=== PATIENT | female | born 1990 | race Caucasian/White ===

== ENCOUNTER 2018-03-31 17:51 | Emergency (ER) | payer OTHER ==
--- NOTE | 2018-03-31 18:11 | CPEKG ---
Heart Rate: 61 RR Interval: 984 P-R Interval: 136 QRSD Interval: 102 QT Interval: 404 QTC Interval: 407 P [place]: 18 QRS [place]: 51 T Wave [place]: 53 EKG Severity - NORMAL ECG - EKG Impression: SINUS RHYTHM Electronically Signed By: Boni Banerjee 02-Apr-2018 07:52:09
[2018-03-31] MEDS ORDERED: NS 1,000 ML IV ONE (18:21)
[2018-03-31] MEDS ORDERED: ONDANSETRON 4 MG/2 ML VIAL IVP ONE (18:21)
--- NOTE | 2018-03-31 18:25 | EDPHY ---
H & P Time Seen by Provider: 03/31/18 17:58 HPI/ROS: CHIEF COMPLAINT: Syncope HISTORY OF PRESENT ILLNESS: 27-year-old transgender male presents to the emergency department by private vehicle after having a syncopal episode. The patient woke up feeling fine this morning around 10 30 felt nauseous and vomited 1 time. Then he was washing dishes around noon today and felt lightheaded and had a syncopal episode. He fell and hit the left anterior aspect of his forehead. He thinks that he had brief loss of consciousness approximately 1 min. He has a mild left frontal headache where he hit. Denies neck or back pain. Denies chest pain or difficulty breathing. He apparently vomited 2 additional times since he hit his head earlier today. He denies abdominal pain. Denies pain in his upper or lower extremities. He has not had problems with syncope in the past. He does have history of seasonal allergies and is not uncommon for him to vomit because of his allergies. REVIEW OF SYSTEMS: Constitutional: No fever, no chills. Eyes: No double or blurry vision. ENT: No sore throat. Respiratory: No cough, no shortness of breath. Cardiac: No chest pain. Gastrointestinal: Vomiting. No abdominal pain or diarrhea. Genitourinary: No dysuria. Musculoskeletal: No neck or back pain. Skin: No rashes. Neurological: headache. Past Medical/Surgical History: Transgender male on testosterone Social History: Single Smoking Status: Current every day smoker Physical Exam: General Appearance: Alert, no distress. Mentating normally and answering questions appropriately. He does have a small hematoma noted to the left anterior frontal forehead. No evidence of depressed skull fracture. Eyes: Pupils equal and round. Extraocular motions are all intact. ENT: Mouth: Mucous membranes moist. No hemotympanum. No dental injury or malocclusion. Respiratory: No wheezing, rhonchi, or rales, lungs are clear to auscultation. Cardiovascular: Regular rate and rhythm. Gastrointestinal: Abdomen is soft and nontender, no masses, no rebound or guarding, bowel sounds normal. Neurological: Alert and oriented x 3, cranial nerves II through XII grossly intact Skin: Warm and dry, no rashes. There are numerous very superficial healing lacerations from self inflicted wounds to bilateral forearms. Musculoskeletal: Nontender to palpate along the cervical, thoracic or lumbar spine. Neck is supple. Extremities: Full range of motion and no peripheral edema. Psychiatric: Patient is oriented X 3, there is no agitation. Constitutional: Initial Vital Signs Temperature (C) 37.5 C 03/31/18 17:54 Heart Rate 70 03/31/18 17:54 Respiratory Rate 16 03/31/18 17:54 Blood Pressure 141/97 H 03/31/18 17:54 O2 Sat (%) 98 03/31/18 17:54 O2 Delivery Mode Room Air Allergies/Adverse Reactions: No Known Allergies Allergy (Unverified 03/31/18 17:52) Home Medications: Medication Instructions Recorded Testosterone Cypionate 03/31/18 Medical Decision Making ED Course/Re-evaluation: 27-year-old transgender male presents to the emergency department with closed head injury and after having a syncopal episode. Laboratory studies were all within normal limits. He received IV normal saline. His EKG was unremarkable. The case was discussed with Dr. Noemi Israel, secondary supervising physician, who did not directly evaluate the patient but agrees with treatment and plan. The patient has a normal neurologic examination. There is a very small hematoma noted to the anterior lateral aspect of the left forehead. He has mild pain with palpation over his forehead a however no other real headache. I discussed the pros and cons of CT imaging of his brain including radiation exposure and the patient agrees with not obtaining CT scan at this time. I did encourage him to return to the emergency department developed worsening headache , vomiting, altered mental status, or any other concerns. Differential Diagnosis: Head injury including but not limited to concussion, skull fracture, intraparenchymal contusion, subarachnoid, subdural and epidural hematoma. Syncope including but not limited to vasovagal syncope, arrhythmia, dehydration , and blood loss. - Data Points Laboratory Results: Laboratory Results 03/31/18 17:50 03/31/18 17:50 Medications Given: Discontinued Medications Sodium Chloride (Ns) 1,000 mls @ 0 mls/hr IV ONCE ONE PRN Reason: Wide Open Stop: 03/31/18 18:22 Last Admin: 03/31/18 18:30 Dose: 1,000 mls Ondansetron HCl (Zofran) 4 mg IVP EDNOW ONE Stop: 03/31/18 18:22 Last Admin: 03/31/18 18:30 Dose: 4 mg Departure - Departure Disposition: Home, Routine, Self-Care Clinical Impression: Syncope Qualifiers: Syncope type: unspecified Qualified Code(s): R55 - Syncope and collapse Head injury Qualifiers: Encounter type: initial encounter Qualified Code(s): S09.90XA - Unspecified injury of head, initial encounter Condition: Good Instructions: Syncope (ED), Concussion (ED), Head Injury (ED) Additional Instructions: Avoid any activity that might put you at risk for another head injury for at least 1 week. Return to the emergency department if you developed worsening headache, vomiting , altered mental status, or if you feel worse in any way. Diet and activity as tolerated. Referrals: Alexandra Lino MD [Medical Doctor] - 1-2 days without fail (Primary care provider transmission line engineer) Stand Alone Forms: Work Excuse
[2018-03-31 18:49] LABS: PLATELET COUNT 171 10^3/uL (150-400)
[2018-03-31 19:42] VITALS: BP 144/91
== END 2018-03-31 20:01 | disposition home or self-care (01) ==
DX: S09.90XA Unspecified injury of head, initial encounter (principal); R55 Syncope and collapse; F17.200 Nicotine dependence, unspecified, uncomplicated; W18.09XA Striking against other object with subsequent fall, initial encounter
CPT/HCPCS: 96374; J2405

== ENCOUNTER 2018-05-01 09:42 | Emergency (ER) | payer OTHER ==
--- NOTE | 2018-05-01 09:52 | EDPHY ---
H & P Stated Complaint: syncope Time Seen by Provider: 05/01/18 09:43 HPI/ROS: HPI: This is a 27-year-old female who presents with Chief Complaint: Fainting at work Location: head Quality: Fainted at work Duration: Prior to arrival Signs and Symptoms: + dizziness described as lightheadedness, no shortness of breath, no chest pain, no palpitations, no lower extremity edema, no wheezing, no orthopnea, no paroxysmal nocturnal dyspnea, no fever, no injury/trauma, no hemoptysis, no carpal pedal spasms Timing: Acute Severity: Mild Context: Patient is transgender and taking testosterone this same dose x1 year. She prefers to be called Óscar. Patient presents with complaints of fainting while at work. 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 Patient reports that she was standing when she started to feel lightheaded and the room closing around her she reported that her vision started to get blurry and then she remembers waking up lying on the ground with her co-worker calling her name. unknown LOC. Patient reports that she does suffer from anxiety. She felt nauseous upon waking. Her fainting episode was unwitnessed per the patient. She complains of a right frontal dull aching headache. Denies any visual changes. She denies any bowel or bladder incontinence. She has not eaten or drank anything this morning. She denies any urinary symptoms. She has no chest pain/shortness of breath/palpitations/fever. Denies any alcohol or drug use. Chart review shows that a similar episode occurred approximately 1 month ago on 03/31/2018 while at work. Patient has not followed up with primary care provider as directed. She was ambulatory from ER registration to her room without any difficulty. Modifying Factors: None Comment: ROS: see HPI Constitutional: No fever, no chills, no weight loss Eyes: No blurred vision Respiratory: No shortness of breath, no cough Cardiovascular: No chest pain, no palpitations, no lower extremity edema Gastrointestinal: No nausea, no vomiting, no diarrhea Genitourinary: No dysuria Extremities: No myalgias Neurologic: No weakness, no numbness Skin: No rashes Hematologic: No bruising, no bleeding MEDICAL/SURGICAL/SOCIAL HISTORY: Medical history: Seasonal allergies, transgender. Surgical history: Denies Social history: Employed. CONSTITUTIONAL: Extremely well-appearing adult, awake and alert, no obvious distress HEENT: Atraumatic and normocephalic, PERRL, EOMI. Nares patent; no rhinorrhea; no nasal mucosal edema. Tympanic membranes clear. Oropharynx clear, no exudate and moist pink mucosa. Airway patent. No lymphadenopathy. No meningismus. Cardiovascular: Normal S1/S2, regular rate, regular rhythm, without murmur rub or gallop. PULMONARY/CHEST: Symmetrical and nontender. Clear to auscultation bilaterally. Good air movement. No accessory muscle usage. ABDOMEN: Soft, nondistended, nontender, no rebound, no guarding, no peritoneal signs, no masses or organomegaly. No CVAT. EXTREMITIES: 2/2 pulses, strength 5/5, no deformities, no clubbing, no cyanosis or edema. NEUROLOGICAL: no focal neuro deficits. GCS 15. Dizziness not reproduced with Dover-Hallpike maneuver. No nystagmus. SKIN: Warm and dry, well-healed cutting mendez noted to both arms, no erythema. no rash. Good capillary refill. Source: Patient Exam Limitations: No limitations - Personal History Current Tetanus/Diphtheria Vaccine: Yes - Medical/Surgical History Hx Asthma: No Hx Chronic Respiratory Disease: No Hx Diabetes: No Hx Cardiac Disease: No Hx Renal Disease: No Hx Cirrhosis: No Hx Alcoholism: No Hx HIV/AIDS: No Hx Splenectomy or Spleen Trauma: No Other PMH: transitioning to male - Social History Smoking Status: Current every day smoker Constitutional: Initial Vital Signs Temperature (C) 36.5 C 05/01/18 09:46 Heart Rate 71 05/01/18 09:46 Respiratory Rate 17 05/01/18 09:46 Blood Pressure 137/94 H 05/01/18 09:46 O2 Sat (%) 97 05/01/18 09:46 O2 Delivery Mode Room Air Allergies/Adverse Reactions: No Known Allergies Allergy (Verified 05/01/18 09:44) Home Medications: Medication Instructions Recorded Testosterone Cypionate 03/31/18 Medical Decision Making - Diagnostics EKG Interpretation: 12 lead EKG: Indication: Syncope Rhythm: Normal sinus rhythm, rate 72 beats per minute [place]: Normal Intervals: Normal QRS: Normal ST segments: Normal T-waves: Normal INTERPRETATION: Normal EKG The 12 lead EKG was interpreted by myself and with attending. ED Course/Re-evaluation: EKG, labs, urinalysis ordered Vital signs reviewed and stable upon arrival. EKG shows no signs of acute ischemic changes or arrhythmias and compared with EKG on 03/31/2018 shows no significant changes. No neurological deficits noted. Head CT scan or Brain MRI are not indicated. Orthostatics equivocal. Patient clearly has not drank any liquids or ate breakfast prior to working this morning and having fainting episode. 1100: Labs reviewed. No signs of leukocytosis/anemia/platelet dysfunction/KYLE/ elevated LFTs/electrolyte imbalance. TSH 0.266; free T4 within normal limits. Patient is to follow up with primary care provider for repeat TSH test and further workup. Urine drug screen is positive for marijuana. Urinalysis shows ketones consistent with mild hypovolemia as well as trace bacteria, 10-15 WBC, 2+ LE; sent for urine culture Patient is completely asymptomatic and prefers to wait on starting antibiotics. Patient further believes did not give clean urine sample. This patient was seen under the supervision of my secondary supervising physician. I evaluated care for this patient independently. Discussed this patient with Dr. Meeks who did not see the patient. Differential Diagnosis: Syncope including but not limited to vasovagal syncope, arrhythmia, dehydration , and blood loss. - Data Points Laboratory Results: Laboratory Results 05/01/18 10:10 05/01/18 10:10 05/01/18 05/01/18 05/01/18 11:12 10:10 10:10 WBC RBC Hgb Hct MCV MCH MCHC RDW Plt Count MPV Neut % (Auto) Lymph % (Auto) [place] % (Auto) Eos % (Auto) Baso % (Auto) Nucleat RBC Rel Count Absolute Neuts (auto) Absolute Lymphs (auto) Absolute Monos (auto) Absolute Eos (auto) Absolute Basos (auto) Absolute Nucleated RBC Immature Gran % Immature Gran # Sodium 145 mEq/L mEq/L (135-145) Potassium 4.4 mEq/L mEq/L (3.3-5.0) Chloride 105 mEq/L mEq/L (97-110) Carbon Dioxide 24 mEq/l mEq/l (22-31) Anion Gap 16 mEq/L mEq/L (8-16) BUN 9 mg/dL mg/dL (7-23) Creatinine 0.7 mg/dL mg/dL (0.7-1.3) Estimated GFR > 60 Glucose 94 mg/dL mg/dL (70-100) Calcium 9.9 mg/dL mg/dL (8.5-10.4) TSH 0.266 uIU/mL L uIU/mL (0.465-4.680) Free T4 1.81 ng/dL ng/dL (0.59-2.19) Urine Color YELLOW Urine Appearance HAZY Urine pH 6.0 (5.0-7.5) Ur Specific [place] 1.014 (1.002-1.030) Urine Protein NEGATIVE (NEGATIVE) Urine Ketones 1+ H (NEGATIVE) Urine Blood NEGATIVE (NEGATIVE) Urine Nitrate NEGATIVE (NEGATIVE) Urine Bilirubin NEGATIVE (NEGATIVE) Urine Urobilinogen NEGATIVE EU EU (0.2-1.0) Ur Leukocyte Esterase 2+ H (NEGATIVE) Urine RBC 5-10 /hpf H /hpf (0-3) Urine WBC 10-15 /hpf H /hpf (0-3) Ur Epithelial Cells 1+ /lpf /lpf (NONE-1+) Urine Bacteria TRACE /hpf H /hpf (NONE SEEN) Urine Mucus TRACE /lpf /lpf (NONE-1+) Urine Glucose NEGATIVE (NEGATIVE) Urine Opiates Screen NEGATIVE (NEGATIVE) Urine Barbiturates NEGATIVE (NEGATIVE) Ur Phencyclidine Scrn NEGATIVE (NEGATIVE) Ur Amphetamine Screen NEGATIVE (NEGATIVE) U Benzodiazepines Scrn NEGATIVE (NEGATIVE) Urine Cocaine Screen NEGATIVE (NEGATIVE) U Marijuana (THC) Screen NON-NEGATIVE H (NEGATIVE) 05/01/18 10:10 WBC 7.73 10^3/uL 10^3/uL (3.80-9.50) RBC 5.19 10^6/uL 10^6/uL (4.40-6.38) Hgb 16.9 g/dL g/dL (13.7-17.5) Hct 49.0 % % (40.0-51.0) MCV 94.4 fL fL (81.5-99.8) MCH 32.6 pg pg (27.9-34.1) MCHC 34.5 g/dL g/dL (32.4-36.7) RDW 11.9 % % (11.5-15.2) Plt Count 200 10^3/uL 10^3/uL (150-400) MPV 12.0 fL H fL (8.7-11.7) Neut % (Auto) 82.9 % H % (39.3-74.2) Lymph % (Auto) 12.2 % L % (15.0-45.0) [place] % (Auto) 3.9 % L % (4.5-13.0) Eos % (Auto) 0.1 % L % (0.6-7.6) Baso % (Auto) 0.6 % % (0.3-1.7) Nucleat RBC Rel Count 0.0 % % (0.0-0.2) Absolute Neuts (auto) 6.41 10^3/uL 10^3/uL (1.70-6.50) Absolute Lymphs (auto) 0.94 10^3/uL L 10^3/uL (1.00-3.00) Absolute Monos (auto) 0.30 10^3/uL 10^3/uL (0.30-0.80) Absolute Eos (auto) 0.01 10^3/uL L 10^3/uL (0.03-0.40) Absolute Basos (auto) 0.05 10^3/uL 10^3/uL (0.02-0.10) Absolute Nucleated RBC 0.00 10^3/uL 10^3/uL (0-0.01) Immature Gran % 0.3 % % (0.0-1.1) Immature Gran # 0.02 10^3/uL 10^3/uL (0.00-0.10) Sodium Potassium Chloride Carbon Dioxide Anion Gap BUN Creatinine Estimated GFR Glucose Calcium TSH Free T4 Urine Color Urine Appearance Urine pH Ur Specific [place] Urine Protein Urine Ketones Urine Blood Urine Nitrate Urine Bilirubin Urine Urobilinogen Ur Leukocyte Esterase Urine RBC Urine WBC Ur Epithelial Cells Urine Bacteria Urine Mucus Urine Glucose Urine Opiates Screen Urine Barbiturates Ur Phencyclidine Scrn Ur Amphetamine Screen U Benzodiazepines Scrn Urine Cocaine Screen U Marijuana (THC) Screen Medications Given: Discontinued Medications Sodium Chloride (Ns) 1,000 mls @ 0 mls/hr IV ONCE ONE; Wide Open PRN Reason: Protocol Stop: 05/01/18 10:02 Last Admin: 05/01/18 10:18 Dose: 1,000 mls Departure - Departure Disposition: Home, Routine, Self-Care Clinical Impression: Near syncope, Low thyroid stimulating hormone (TSH) level Condition: Good Instructions: Dehydration (ED), Hyperthyroidism (ED), Near Syncope (ED) Additional Instructions: Consume a minimum of 8-10 glasses of water or electrolyte fluid replacement drinks that include Gatorade, Powerade, Pedialyte. Make sure to eat a minimum of 3 meals per day. Follow-up with your primary care provider in the next 1-2 weeks. TSH level today was low normal. This will need to be repeated in 6-8 weeks. Follow-Up: Please follow-up as noted above. Follow up sooner if your condition worsens or if you develop any new problems Call as soon as possible for an appointment. Be clear when you call for an appointment that this is an Emergency Department follow-up. Contact the Emergency Department if you are having trouble arranging follow up care. Our referrals are not based on your insurance network. When time allows, contact your insurance carrier to verify the referral physician is in your plan. If not, get a referral for an in-cisco network engineer. Please ask us if you have any questions. Referrals: Shaw Apodaca DO [Doctor of Osteopathy] - As per Instructions Stand Alone Forms: Work Excuse
--- NOTE | 2018-05-01 10:00 | CPEKG ---
Heart Rate: 72 RR Interval: 833 P-R Interval: 124 QRSD Interval: 82 QT Interval: 368 QTC Interval: 403 P [place]: 11 QRS [place]: 52 T Wave [place]: 44 EKG Severity - NORMAL ECG - EKG Impression: INCOMPLETE ANALYSIS DUE TO MISSING DATA IN PRECORDIAL LEAD(S) EKG Impression: SINUS RHYTHM Electronically Signed By: Agnieszka Meeks 01-May-2018 11:07:32
[2018-05-01] MEDS ORDERED: NS 1,000 ML IV ONE (10:01)
[2018-05-01 10:23] LABS: PLATELET COUNT 200 10^3/uL (150-400)
[2018-05-01 11:57] VITALS: BP 120/73
== END 2018-05-01 11:58 | disposition home or self-care (01) ==
DX: R55 Syncope and collapse (principal); E03.9 Hypothyroidism, unspecified; E86.9 Volume depletion, unspecified; F17.200 Nicotine dependence, unspecified, uncomplicated
CPT/HCPCS: 80305

== ENCOUNTER 2018-06-27 09:27 | Emergency (ER) | payer OTHER ==
[2018-06-27] MEDS ORDERED: MAG HYDROX/AL HYDROX/SIMETH 30 ML UDCUP PO ONE (10:07)
[2018-06-27] MEDS ORDERED: HYOSCYAMINE SULFATE 0.125 MG TAB PO ONE (10:07)
[2018-06-27] MEDS ORDERED: LIDOCAINE 2% VISCOUS 15 ML UDCUP PO ONE (10:07)
--- NOTE | 2018-06-27 10:11 | EDPHY ---
H & P Stated Complaint: vomitting blood this morning Time Seen by Provider: 06/27/18 09:51 HPI/ROS: CHIEF COMPLAINT: Vomited blood HISTORY OF PRESENT ILLNESS: 27-year-old female transitioning to male presents with 1 episode of vomiting blood. Onset of vomiting in the mornings 1 year ago. He typically has 1 episode of vomiting when he wakes up and then is able to tolerate oral fluids and food throughout the remainder of the day. This morning when he vomited, there was some blood mixed in the emesis. 1 prior similar episode. He was diagnosed with an ulcer previously and placed on an unknown medication. He has not seen GI and has never had endoscopy. REVIEW OF SYSTEMS: complete 10 point ROS negative except at noted in the HPI - Medical/Surgical History Hx Asthma: No Hx Chronic Respiratory Disease: No Hx Diabetes: No Hx Cardiac Disease: No Hx Renal Disease: No Hx Cirrhosis: No Hx Alcoholism: No Hx HIV/AIDS: No Hx Splenectomy or Spleen Trauma: No Other PMH: transitioning to male - Social History Smoking Status: Current every day smoker - Physical Exam Exam: General Appearance: Alert, pleasant Eyes: Pupils equal and round, no conjunctival pallor ENT, Mouth: Mucous membranes moist Neck: Normal inspection Respiratory: Lungs are clear to auscultation Cardiovascular: Regular rate and rhythm Gastrointestinal: Abdomen is soft, epigastric tenderness Neurological: A&O, nonfocal, normal gait Skin: Warm and dry Extremities: Normal inspection Psychiatric: Mood and affect normal Constitutional: Initial Vital Signs Temperature (C) 36.3 C 06/27/18 09:30 Heart Rate 66 06/27/18 09:30 Respiratory Rate 18 06/27/18 09:30 Blood Pressure 130/77 H 06/27/18 09:30 O2 Sat (%) 98 06/27/18 09:30 O2 Delivery Mode Room Air Allergies/Adverse Reactions: No Known Allergies Allergy (Verified 06/27/18 09:29) Home Medications: Medication Instructions Recorded Testosterone Cypionate 03/31/18 Pantoprazole Sodium [Protonix 40mg 40 mg PO DAILY #20 tab 06/27/18 (*)] Medical Decision Making ED Course/Re-evaluation: This patient presents after 1 episode of hematemesis with epigastric tenderness. Hematocrit normal. GI cocktail given with relief in symptoms. Rx for Protonix given. Encouraged GI follow-up. Warning signs discussed Differential Diagnosis: Includes though is not limited to esophageal varices, acute gastritis, epistaxis , hemoptysis, severe anemia, hypotension - Data Points Laboratory Results: Laboratory Results 06/27/18 10:20 06/27/18 10:20 06/27/18 06/27/18 10:20 10:20 WBC 6.26 10^3/uL 10^3/uL (3.80-9.50) RBC 4.51 10^6/uL 10^6/uL (4.40-6.38) Hgb 14.9 g/dL g/dL (13.7-17.5) Hct 43.3 % % (40.0-51.0) MCV 96.0 fL fL (81.5-99.8) MCH 33.0 pg pg (27.9-34.1) MCHC 34.4 g/dL g/dL (32.4-36.7) RDW 12.2 % % (11.5-15.2) Plt Count 175 10^3/uL 10^3/uL (150-400) MPV 12.5 fL H fL (8.7-11.7) Neut % (Auto) 70.6 % % (39.3-74.2) Lymph % (Auto) 22.4 % % (15.0-45.0) [place] % (Auto) 5.4 % % (4.5-13.0) Eos % (Auto) 0.5 % L % (0.6-7.6) Baso % (Auto) 0.8 % % (0.3-1.7) Nucleat RBC Rel Count 0.0 % % (0.0-0.2) Absolute Neuts (auto) 4.42 10^3/uL 10^3/uL (1.70-6.50) Absolute Lymphs (auto) 1.40 10^3/uL 10^3/uL (1.00-3.00) Absolute Monos (auto) 0.34 10^3/uL 10^3/uL (0.30-0.80) Absolute Eos (auto) 0.03 10^3/uL 10^3/uL (0.03-0.40) Absolute Basos (auto) 0.05 10^3/uL 10^3/uL (0.02-0.10) Absolute Nucleated RBC 0.00 10^3/uL 10^3/uL (0-0.01) Immature Gran % 0.3 % % (0.0-1.1) Immature Gran # 0.02 10^3/uL 10^3/uL (0.00-0.10) Sodium 141 mEq/L mEq/L (135-145) Potassium 4.0 mEq/L mEq/L (3.3-5.0) Chloride 109 mEq/L mEq/L (97-110) Carbon Dioxide 24 mEq/l mEq/l (22-31) Anion Gap 8 mEq/L mEq/L (8-16) BUN 15 mg/dL mg/dL (7-23) Creatinine 0.7 mg/dL mg/dL (0.7-1.3) Estimated GFR > 60 Glucose 89 mg/dL mg/dL (70-100) Calcium 9.4 mg/dL mg/dL (8.5-10.4) Total Bilirubin 0.7 mg/dL mg/dL (0.1-1.4) Conjugated Bilirubin 0.1 mg/dL mg/dL (0.0-0.5) Unconjugated Bilirubin 0.6 mg/dL mg/dL (0.0-1.1) AST 35 IU/L IU/L (17-59) ALT 72 IU/L IU/L (21-72) Alkaline Phosphatase 73 IU/L IU/L (38-126) Total Protein 6.7 g/dL g/dL (6.3-8.2) Albumin 4.2 g/dL g/dL (3.5-5.0) Lipase 49 IU/L IU/L (23-300) Medications Given: Discontinued Medications Al Hydroxide/Mg Hydroxide (Maalox Susp) 30 ml PO ONCE ONE Stop: 06/27/18 10:08 Last Admin: 06/27/18 10:31 Dose: 30 ml Hyoscyamine Sulfate (Levsin, Hyomax-Sl) 0.25 mg PO ONCE ONE Stop: 06/27/18 10:08 Last Admin: 06/27/18 10:31 Dose: 0.25 mg Ibuprofen (Motrin) 600 mg PO EDNOW ONE Stop: 06/27/18 10:32 Last Admin: 06/27/18 10:32 Dose: 600 mg Lidocaine (Lidocaine 2% Viscous) 15 ml PO ONCE ONE Stop: 06/27/18 10:08 Last Admin: 06/27/18 10:31 Dose: 15 ml Ondansetron HCl (Zofran) 4 mg IVP EDNOW ONE Stop: 06/27/18 10:23 Last Admin: 06/27/18 10:31 Dose: 4 mg Departure - Departure Disposition: Home, Routine, Self-Care Clinical Impression: Hematemesis with nausea Condition: Good Instructions: Hematemesis (ED) Additional Instructions: Take Mylanta 30 min prior to meals and at bedtime. Take Protonix as prescribed. Call GI to make an appointment. Return for worsening symptoms or any concerns. Referrals: Bernardo Vargas MD [Medical Doctor] - As per Instructions (Call to make an appointment.) Prescriptions: Pantoprazole Sodium [Protonix 40mg (*)] 40 mg PO DAILY #20 tab
[2018-06-27] MEDS ORDERED: ONDANSETRON 4 MG/2 ML VIAL IVP ONE (10:22)
[2018-06-27] MEDS ORDERED: IBUPROFEN 600 MG TAB PO ONE ×2 (10:23→10:31)
[2018-06-27 10:37] VITALS: BP 118/73
[2018-06-27 10:44] LABS: PLATELET COUNT 175 10^3/uL (150-400)
== END 2018-06-27 11:27 | disposition home or self-care (01) ==
DX: K92.0 Hematemesis (principal); F17.200 Nicotine dependence, unspecified, uncomplicated
CPT/HCPCS: 96374; J2405